=== PATIENT | female | born 1995 | race Caucasian/White ===

== ENCOUNTER 2023-11-10 13:55 | Emergency (ER) | payer OTHER, SELFPAY ==
[2023-11-10 13:57] VITALS: BP 133/87
--- NOTE | 2023-11-10 14:28 | ED.GENMED ---
History of Present Illness
General
Chief Complaint: Musculo-Skeletal Complaint
Time Seen by Provider: 11/10/23 14:17
History of Present Illness
History of Present Illness:
28-year-old female presents the emergency department for evaluation of left foot and ankle pain sustained after falling while performing tumbling during gymnastics. Large amount of swelling to the lateral ankle noted. She is able to bear weight
with pain.
Review of Systems
Review of Systems
Allergies reviewed?: Yes
All Other Systems: ROS reviewed and negative except as documented in HPI and ROS
Phy Exam
Physical Exam
Physical Exam:
GEN: Well appearing, NAD, WDWN
HEENT: Oral mucosa moist, no scleral icterus
Cardiac: Regular rate
Lung: No respiratory distress, no tachypnea
MSK: Moderate swelling of the left lateral malleolus and ATFL region of the foot. No joint laxity, no focal bony tenderness
Skin: Good color, no pallor or jaundice, no rashes
Neuro: AO x3, moves all extremities freely
Psych: Calm, cooperative
Course
Orders/Labs/Results
Orders:
Orders
11/10/23 13:59
CR Foot - Left Min 3 Views Urgent
Comment:
Reason For Exam: injury
11/10/23 14:08
CR Ankle - Left Min 3 Views Urgent
Comment:
Reason For Exam: injury
Vital Signs
Initial and Last Documented VS:
Initial Vital Signs
Temp Pulse Resp BP Pulse Ox
98.3 F 91 18 133/87 99
11/10/23 13:57 11/10/23 13:57 11/10/23 13:57 11/10/23 13:57 11/10/23 13:57
Last Documented Vital Signs
Temp Pulse Resp BP Pulse Ox
98.3 F 72 20 147/73 99
11/10/23 13:57 11/10/23 15:03 11/10/23 15:03 11/10/23 15:03 11/10/23 13:57
MDM/Problems Addressed
MDM/Problems Addressed:
Imaging shows subtle avulsion fracture of the distal fibula, likely severe sprain as well based on degree of swelling. Discussed supportive care, Ortho boot provided
*Critical Care Note
Total Time (30-74mins, 75-104mins- exclusive of procedures): Not Applicable
ED Attending Note
-
Portions of this chart may have been created with voice recognition software.� Occasional wrong word or��sound alike� substitutions may have occurred due to the inherent limitations of voice recognition software.
Discharge Plan
Departure
Patient Disposition: Home (Routine Discharge)
Date of Disposition: 11/10/23
Time of Disposition: 14:30
Patient with high blood pressure during this ER visit?: No
Discharge Problem:
Closed fracture of distal end of left fibula, Left ankle sprain
Instructions: Ankle Sprain ED
Referrals:
Luis Anton MD [Active] -
Activity Restrictions/Additional Instructions:
Your x-ray shows a very small chip fracture of the outer ankle bone. This will likely be managed similarly to a significant ankle sprain. Please follow-up with orthopedics. You may wear the boot and bear weight as tolerated until orthopedic
follow-up
Interventions
Interventions:
*Risk Screen - Suicide Last Done: 11/10/23 14:29
*General Assessment Last Done: 11/10/23 13:57
*Neglect/Abuse Screening Last Done: 11/10/23 14:29
*Nursing Disposition Last Done: 11/10/23 15:03
ED-Musculoskeletal Assessment Last Done: 11/10/23 14:28
Discharge Date and Time
Discharge Date/Time: 11/10/23 15:03
Print Language: KHMER
[2023-11-10 15:03] VITALS: BP 147/73
== END 2023-11-10 15:03 | disposition home or self-care (01) ==
LOC: EMR 13:55
PROVIDERS: EMERGENCY PHYSICIAN Emergency Medicine
DX: S82.832A Other fracture of upper and lower end of left fibula, initial encounter for closed fracture (principal); S93.402A Sprain of unspecified ligament of left ankle, initial encounter; W19.XXXA Unspecified fall, initial encounter; Y93.43 Activity, gymnastics
CPT/HCPCS: 99283; 73610; 73630